=== PATIENT | female | born 1980 | race Caucasian/White ===

== ENCOUNTER 2025-01-20 13:02 | Outpatient (AMB) | payer MEDICAID, SELFPAY ==
[2025-01-20 13:56] VITALS: BP 125/86; PULSE 98; RESP 18; TEMP 36.6; O2SAT 97; BMI 43.0
--- NOTE | 2025-01-20 13:56 | ORTHONT_ITS ---
Vital signs 01/20/25 13:56 Height 1.6 m Height Method Stated Weight 110.336 kg Weight Measurement Method Standing Scale BMI 43.0 BP 125/86 H Blood Pressure Source Automatic Cuff Blood Pressure Location Left Upper Arm Position Sitting Respiration 18 Pulse 98 Pulse Source Monitor Temp 97.8 F Temp Source Temporal Artery Scan Pulse Oximetry (%) 97 Oxygen Delivery Method Room Air Med/Allergies Allergies & Medications Allergies No Known Allergies Allergy (Verified 01/20/25 13:58) Medication Reconciliation meloxicam 7.5 mg tablet 7.5 mg PO QDAY #45 tabs 01/20/25 [Rx] Exam Exam Breathing is nonlabored. Patient has a normal mood and affect. Bilateral extremities were evaluated and demonstrates sensation intact to light touch. Palpable pedal pulses are present. No significant edema is present. Bilateral hips were examined. The patient has no pain with log roll of the hips. Internal rotation to 30 degrees and external rotation to 30 degrees is painless. Negative FADIR. Left knee was examined today. The left knee is in reasonable alignment. Range of motion from 0-120 degrees. Knee is stable to varus and valgus as well as AP translation with <5mm. Patient has a negative McMurrays. There is no pain with patellofemoral compression and no crepitus noted. The knee is nontender to palpation. The right knee was also examined. The right knee is in varus alignment. Range of motion from 0-115 degrees. Knee is stable to varus and valgus as well as AP translation with <5mm. Patient has a negative McMurrays. There is no pain with patellofemoral compression and no crepitus noted. The knee is tender to palpation medially. Bilateral knee MRIs from [facility] were reviewed. This demonstrates meniscus tears medially and laterally of both knees interestingly. There is cartilage loss as well Assessment and Plan Problem List (1) Degenerative arthritis of knee, bilateral: Status: Acute Plan: Patient is a pleasant 44-year-old female with bilateral knee pain and bilateral knee arthritis. She has been trying to lose weight. We thus discussed nonoperative and operative options. I would like to see weightbearing x-rays to better evaluate the severity of the arthritis. She is trying to lose weight. Office Procedures GNS Level of Care Nursing/Assessment Patient Status: Initial/New Patient Nursing Assessment/Reassesment: Medication Reconciliation, Update PMH in EMR and Vital Signs Coordination of Care: Complex Care and Chronic Disease 1-5, Education Complex Pt/Fam, Consent,records obtained, informed consent, 1 Ins Authorization, Lab and Imaging orders, Results/Orders obtained and Staff clarify orders New Patient Charge New Patient Point Assignment: 1124 New Patient Point Charge: DISCOTHEQUE DANCER Level 4 ([id number]) MA Intake Visit Data Collection New Patient or Established: New Patient (never been to [facility]) Reason for Visit:: LEFT KNEE MENISCUS Seen by Clinical Staff ONLY (RN/MA): No PCP or OBGYN visit in last 3 months: Yes Hx Now: No Do You Feel Safe at Home: Yes Authorities Contacted: N/A Questionairres Past Medical History Past Medical History Have you ever been diagnosed with any of the following: Respiratory Problems Smoking: No Smoking Exposure: No Subjective Visit Visit for: new patient and knee Immunization / Flu Flu Vaccine in the Last 12 Months: No Flu Vaccine Exclusion Criteria: Refused by Patient History of Present Illness Chief complaint: Bilateral knee pain Patient is a pleasant 44-year-old male with bilateral knee pain. She reports the right knee pain is worse than the left. This has been ongoing for several years. She has had 1 injection in the past and reports minimal relief. She has tried anti-inflammatories. Personal History Occupation: [employer] Pain Pain level (0-10): 10 Pain duration: ALL DAY Pain location: anterior Pain quality: sharp, aching and other (specify) (SWELLING) Pain timing: night and increases with activity Ambulatory data Ambulatory device: none Treatments Number of previous injections: 1 Improvement with previous injections: No Improvement with PT: No Improvement with NSAIDS: no Review of Systems Review of Systems: All systems negative unless otherwise noted in HPI.
--- NOTE | 2025-01-20 14:01 | XR_ITS ---
Examination: Bilateral knees 2 views Right lateral knee left lateral knee 2 views Bilateral axial knees single view TECHNIQUE: Bilateral AP knees standing single view, bilateral PA knees standing single view flexion Standing right lateral knee left lateral knee 2 views Bilateral axial knees single view INDICATIONS: Bilateral knee pain 2 years. FINDINGS: Moderate osteopenia Moderate narrowing medial joint space right knee Moderate to advanced narrowing medial joint space left knee No fractures IMPRESSION: Moderate narrowing medial joint space right knee Moderate to advanced narrowing medial joint space left knee
== END 2025-01-20 14:03 | disposition home or self-care (01) ==
LOC: HODSRG 13:02
PROVIDERS: PCP Nurse Practitioner; Referring Provider Nurse Practitioner; Supervising Provider Orthopaedic Surgery Adult Reconstructive Orthopaedic Surgery; Visit Provider Orthopaedic Surgery Adult Reconstructive Orthopaedic Surgery
DX: M17.0 Bilateral primary osteoarthritis of knee (principal); M25.562 Pain in left knee; M25.561 Pain in right knee
CPT/HCPCS: 73564; 99204; G0463

== ENCOUNTER 2025-02-08 13:21 | Outpatient (AMB) | payer MEDICAID, SELFPAY ==
[2025-02-08 13:50] VITALS: BP 105/70; PULSE 86; RESP 18; TEMP 36.3; O2SAT 98; BMI 42.5
--- NOTE | 2025-02-08 13:50 | PD.ORTHCLVIS ---
Vital signs 02/08/25 13:50 Height 1.6 m Height Method Stated Weight 108.919 kg Weight Measurement Method Standing Scale BMI 42.5 BP 105/70 Blood Pressure Source Automatic Cuff Blood Pressure Location Left Upper Arm Position Sitting Respiration 18 Pulse 86 Pulse Source Monitor Temp 97.4 F Temp Source Temporal Artery Scan Pulse Oximetry (%) 98 Oxygen Delivery Method Room Air Med/Allergies Allergies & Medications Allergies No Known Allergies Allergy (Verified 01/20/25 13:58) Medication Reconciliation meloxicam 7.5 mg tablet 7.5 mg PO QDAY #45 tabs 01/20/25 [Rx Confirmed 02/08/25] Exam Exam Breathing is nonlabored. Patient has a normal mood and affect. Bilateral extremities were evaluated and demonstrates sensation intact to light touch. Palpable pedal pulses are present. No significant edema is present. Bilateral hips were examined. The patient has no pain with log roll of the hips. Internal rotation to 30 degrees and external rotation to 30 degrees is painless. Negative FADIR. Left knee was examined today. The left knee is in reasonable alignment. Range of motion from 0-120 degrees. Knee is stable to varus and valgus as well as AP translation with <5mm. Patient has a negative McMurrays. There is no pain with patellofemoral compression and no crepitus noted. The knee is nontender to palpation. The right knee was also examined. The right knee is in varus alignment. Range of motion from 0-115 degrees. Knee is stable to varus and valgus as well as AP translation with <5mm. Patient has a negative McMurrays. There is no pain with patellofemoral compression and no crepitus noted. The knee is tender to palpation medially. Bilateral knee MRIs from [facility] were reviewed. This demonstrates meniscus tears medially and laterally of both knees interestingly. Assessment and Plan Problem List (1) Degenerative arthritis of knee, bilateral: Status: Acute Plan: Patient is a pleasant 44-year-old female with bilateral knee pain and bilateral knee arthritis. She has been trying to lose weight. We thus discussed nonoperative and operative options. She does have mild arthritis. We will try a right knee cortisone injection today. Recommend knee cortisone injection as patient would like to proceed with conservative treatment at this time. The risks and benefits of the procedure were reviewed with the patient and patient gave verbal consent to continue with the procedure. Procedure: performed by Dr. Hanson Using sterile technique the Right knee was thoroughly prepped with alcohol, and approximately 1 cc of Depo-Medrol 80mg/mL and 4 cc of 0.2% ropivacaine was injected without resistance into the medial tibial femoral joint space. The patient tolerated the procedure. Office Procedures GNS Level of Care Nursing/Assessment Patient Status: Established Patient Nursing Assessment/Reassesment: Medication Reconciliation, Update PMH in EMR and Vital Signs Coordination of Care: Complex Care and Chronic Disease 1-5, Education Complex Pt/Fam, Consent,records obtained, informed consent, Results/Orders obtained and Staff clarify orders Established Patient Charge Established Patient Point Assignment: 95 Established Patient Point Charge: EP Level 3 (80-115) Surgical Proc/IM SQ injection Major Surgical Procedure: Yes (KNEE INJECTION) Medication Given Medication Given Medication Given: Yes Documented Dose Given: 1 Route: Infiitration Medication Given Medication Given Medication Given: Yes Documented Dose Given: 4 Route: Infiitration Office Meds methylprednisolone acetate 80 mg/mL suspension for injection Performing Provider: Christoph Hanson MD Performing Location: [facility] Administered by: Christoph Hanson MD on 02/08/25 14:18 Dose Route Admin Location Dispensed Lot Number Expiration Date [facility] [employer] 80 mg intra-articular 1 mL [id number] 12/03/26 [address]-0 [employer] ropivacaine (PF) 2 mg/mL (0.2 %) injection solution Performing Provider: Christoph Hanson MD Performing Location: [facility] Administered by: Christoph Hanson MD on 02/08/25 14:18 Dose Route Admin Location Dispensed Lot Number Expiration Date [facility] [employer] 20 mL Infiltration 20 mL [id number] 05/05/26 88374-544-01 [facility] Intake Visit Data Collection New Patient or Established: Established Patient (seen at [facility] within 3 years) Reason for Visit:: LEFT KNEE MENISCUS/XRAY RESULTS Seen by Clinical Staff ONLY (RN/MA): No PCP or OBGYN visit in last 3 months: Yes Hx Now: No Do You Feel Safe at Home: Yes Authorities Contacted: N/A Questionairres Past Medical History Past Medical History Have you ever been diagnosed with any of the following: Respiratory Problems Smoking: No Smoking Exposure: No Subjective Visit Visit for: follow up visit, knee and x-rays (RESULTS) Immunization / Flu Flu Vaccine in the Last 12 Months: No Flu Vaccine Exclusion Criteria: Refused by Patient History of Present Illness Chief complaint: Bilateral knee pain Patient is a pleasant 44-year-old male with bilateral knee pain. She reports the right knee pain is worse than the left. This has been ongoing for several years. She has had 1 injection in the past and reports minimal relief. She has tried anti-inflammatories. Personal History Occupation: [employer] Pain Pain level (0-10): 10 Pain duration: ALL DAY Pain location: anterior Pain quality: sharp, aching and other (specify) (SWELLING) Pain timing: night and increases with activity Ambulatory data Ambulatory device: none Treatments Number of previous injections: 1 Improvement with previous injections: No Improvement with PT: No Improvement with NSAIDS: no Review of Systems Review of Systems: All systems negative unless otherwise noted in HPI.
== END 2025-02-08 14:10 | disposition home or self-care (01) ==
LOC: HODSRG 13:21
PROVIDERS: PCP Nurse Practitioner; Referring Provider Nurse Practitioner; Supervising Provider Orthopaedic Surgery Adult Reconstructive Orthopaedic Surgery; Visit Provider Orthopaedic Surgery Adult Reconstructive Orthopaedic Surgery
DX: M17.0 Bilateral primary osteoarthritis of knee (principal); M25.562 Pain in left knee; M25.561 Pain in right knee
CPT/HCPCS: 20610; 99213; J1010; J2795; G0463

== ENCOUNTER 2025-05-12 09:32 | Outpatient (AMB) | payer MEDICAID, SELFPAY ==
--- NOTE | 2025-05-12 10:05 | ORTHONT_ITS ---
Vital signs 05/12/25 10:06 Height 1.6 m Height Method Measured Weight 102.654 kg Weight Measurement Method Standing Scale BMI 40.1 BP 114/81 Blood Pressure Source Automatic Cuff Blood Pressure Location Left Upper Arm Position Sitting Respiration 18 Pulse 77 Pulse Source Monitor Temp 97.7 F Temp Source Temporal Artery Scan Pulse Oximetry (%) 98 Oxygen Delivery Method Room Air Med/Allergies Allergies & Medications Allergies No Known Allergies Allergy (Verified 05/12/25 10:08) Medication Reconciliation meloxicam 7.5 mg tablet 7.5 mg PO QDAY #45 tabs 01/20/25 [Rx Confirmed 05/12/25] celecoxib 200 mg capsule 200 mg PO BID #60 caps 05/12/25 [Rx] Exam Exam Breathing is nonlabored. Patient has a normal mood and affect. Bilateral extremities were evaluated and demonstrates sensation intact to light touch. Palpable pedal pulses are present. No significant edema is present. Bilateral hips were examined. The patient has no pain with log roll of the hips. Internal rotation to 30 degrees and external rotation to 30 degrees is painless. Negative FADIR. Left knee was examined today. The left knee is in reasonable alignment. Range of motion from 0-120 degrees. Knee is stable to varus and valgus as well as AP translation with <5mm. Patient has a negative McMurrays. There is no pain with patellofemoral compression and no crepitus noted. The knee is nontender to palpation. The right knee was also examined. The right knee is in varus alignment. Range of motion from 0-115 degrees. Knee is stable to varus and valgus as well as AP translation with <5mm. Patient has a negative McMurrays. There is no pain with patellofemoral compression and no crepitus noted. The knee is tender to palpation medially. Bilateral knee MRIs from [facility] were reviewed. This demonstrates meniscus tears medially and laterally of both knees interestingly. Assessment and Plan Problem List (1) Degenerative arthritis of knee, bilateral: Status: Acute Plan: Patient is a pleasant 44-year-old female with bilateral knee pain and bilateral knee arthritis. She has been trying to lose weight. We thus discussed nonoperative and operative options. She does have mild arthritis. She did not do great with the last injections. She would like to try physical therapy and we will switch her anti-inflammatory medication. She will go months to see how she does with physical therapy Office Procedures GNS Level of Care Nursing/Assessment Patient Status: Established Patient Nursing Assessment/Reassesment: Medication Reconciliation, Update PMH in EMR and Vital Signs Coordination of Care: Complex Care and Chronic Disease 1-5, Education Complex Pt/Fam, Consent,records obtained, informed consent, Results/Orders obtained and Staff clarify orders Established Patient Charge Established Patient Point Assignment: 95 Established Patient Point Charge: EP Level 3 (80-115) MA Intake Visit Data Collection New Patient or Established: Established Patient (seen at [facility] within 3 years) Reason for Visit:: 3 MONTH F/U Seen by Clinical Staff ONLY (RN/MA): No Examiner Rating Clerk Required: No PCP or OBGYN visit in last 3 months: Yes Hx Now: No Do You Feel Safe at Home: Yes Authorities Contacted: N/A Questionairres Past Medical History Past Medical History Have you ever been diagnosed with any of the following: Respiratory Problems Smoking: No Smoking Exposure: No Subjective Visit Visit for: follow up visit and knee Immunization / Flu Flu Vaccine in the Last 12 Months: No Flu Vaccine Exclusion Criteria: Refused by Patient History of Present Illness Chief complaint: 3 MONTH F/U Patient is a pleasant 44-year-old male with bilateral knee pain. She reports the right knee pain is worse than the left. This has been ongoing for several years. She has had 1 injection in the past and reports minimal relief. She has tried anti-inflammatories. Personal History Occupation: [employer] Pain Pain level (0-10): 10 Pain duration: ALL DAY Pain location: anterior Pain quality: sharp, aching and other (specify) (SWELLING) Pain timing: night and increases with activity Ambulatory data Ambulatory device: none Treatments Number of previous injections: 1 (INJECTION MADE PAIN WORST) Improvement with previous injections: No Improvement with PT: No Improvement with NSAIDS: no Review of Systems Review of Systems: All systems negative unless otherwise noted in HPI.
[2025-05-12 10:06] VITALS: BP 114/81; PULSE 77; RESP 18; TEMP 36.5; O2SAT 98; BMI 40.1
== END 2025-05-12 10:22 | disposition home or self-care (01) ==
LOC: HODSRG 09:32
PROVIDERS: PCP Nurse Practitioner; Referring Provider Nurse Practitioner; Supervising Provider Orthopaedic Surgery Adult Reconstructive Orthopaedic Surgery; Visit Provider Orthopaedic Surgery Adult Reconstructive Orthopaedic Surgery
DX: M25.562 Pain in left knee (principal); M25.561 Pain in right knee; M17.0 Bilateral primary osteoarthritis of knee
CPT/HCPCS: 99213; G0463